=== PATIENT | male | born 1980 | race Caucasian/White ===

== ENCOUNTER 2016-11-14 02:01 | Emergency (ER) | payer SELFPAY ==
[~2016-11-14] VITALS: Ht 185.4 cm; Wt 86.0 kg
[2016-11-14 02:12] VITALS: BP 143/84
== END 2016-11-14 02:25 | disposition left against medical advice (07) ==
LOC: ER 02:01
DX: R11.2 Nausea with vomiting, unspecified (principal); Z53.21 Procedure and treatment not carried out due to patient leaving prior to being seen by health care provider

== ENCOUNTER 2018-04-13 16:35 | Emergency (ER) | payer SELFPAY ==
[~2018-04-13] VITALS: Ht 185.4 cm; Wt 93.0 kg
[2018-04-13 16:36] VITALS: BP 138/76
== END 2018-04-13 21:20 | disposition left against medical advice (07) ==
LOC: ER 16:35
DX: Z53.21 Procedure and treatment not carried out due to patient leaving prior to being seen by health care provider (principal)